=== PATIENT | male | born 1965 | race African-American/Black ===

== ENCOUNTER 2016-06-13 08:30 | Inpatient (IN) | payer OTHER ==
[2016-06-13 10:19] VITALS: BMI 26.7
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
[2016-06-13] MEDS ORDERED: chlordiazePOXIDE HCL 25 MG CAPSULE PO PRN (11:28)
[2016-06-13] MEDS ORDERED: IBUPROFEN 400 MG TABLET (FP) PO PRN (11:28)
[2016-06-13] MEDS ORDERED: MAGNESIUM CITRATE 300 ML BOTTLE PO PRN (11:28)
[2016-06-13] MEDS ORDERED: hydrOXYzine PAMOATE 25 MG CAPSULE (FP) PO PRN (11:28)
[2016-06-13] MEDS ORDERED: MAG HYDROX/AL HYDROX/SIMETH 30 ML UNIT-DOSE CUP PO PRN (11:28)
[2016-06-13] MEDS ORDERED: guaiFENesin/D-METHORPHAN HB 10 ML UNIT-DOSE CUPS PO PRN (11:28)
[2016-06-13] MEDS ORDERED: NICOTINE POLACRILEX 2 MG GUM BUC PRN (11:28)
[2016-06-13] MEDS ORDERED: P-EPHED 60MG/TRIPROLIDI 2.5MG TABLET PO PRN (11:28)
[2016-06-13] MEDS ORDERED: MENTHOL/PHENOL 1 EACH UD MM PRN (11:28)
[2016-06-13] MEDS ORDERED: LOPERAMIDE HCL 2 MG CAPSULE PO PRN (11:28)
[2016-06-13] MEDS ORDERED: MAGNESIUM HYDROX 2400MG/30ML ORAL SUSPENSION 30 ML CUP PO PRN (11:28)
[2016-06-13] MEDS ORDERED: ACETAMINOPHEN 325 MG TABLET (FP) PO PRN (11:28)
--- NOTE | 2016-06-13 11:35 | PN ---
BHS Progress Note Note: PATIENT ALSO HAS DVT LEFT LEG ON PRADAXA 150 MGS PO BID
[2016-06-13] MEDS ORDERED: chlordiazePOXIDE HCL 25 MG CAPSULE PO ONE (11:42)
[2016-06-13] MEDS: NICOTINE 21 MG/24 HOURS TOPICAL PATCH TD SCH (13:14)
--- NOTE | 2016-06-13 13:49 | CONSULT ---
[facility] Psychiatric Consult - Data Date of interview: 06/13/16 Admission source: [facility] Identifying data: This is 50 years old male with history of Bipolar disorder intoxicated with: Alcohol, Crack, Nicotine and Cannabis Substance Abuse History: - Smoking Cessation. Smoking history: Current every day smoker. Have you smoked in the past 12 months: Yes. Aproximately how many cigarettes per day: 10. Cigars Per Day: 0. Hx Chewing Tobacco Use: No. Initiated information on smoking cessation: Yes. 'Breaking Loose' booklet given : 06/13/16. - Substance & Tx. History. Hx Alcohol Use: Yes. Substance Use Type: Cocaine. Hx Substance Use Treatment: Yes (LAST [facility] ). - Substances Abused. Alcohol. Route: Oral. Frequency: Daily. Amount used: 2 qts beer/ 1 pint vodka. Age of first use: 14. Date of Last Use: 06/13/16. * * Crack. Route: Smoking. Frequency: Daily. Amount used: $30. Age of first use: 19. Date of Last Use: 06/11/16 Medical History: AIDS, DVT Hisotury, Avascula necrosis both Hips, HTN, Weight loss, Seizure history, Syncope history Psychiatric History: Patient reports to carry Bipolar disorder, reports no history of psychiatric hospitalizarions, reports taking prior to admission: Lexapro 20mg poqd Physical/Sexual Abuse/Trauma History: Denies Additional Comment: Lexapro 20mg poqd Mental Status Exam - Mental Status Exam Alert and Oriented to: Person Cognitive Function: Fair Patient Appearance: Unkempt Mood: Sad Affect: Mood Congruent Patient Behavior: Cooperative Speech Pattern: Appropriate Voice Loudness: Normal Thought Process: Circumstantial Thought Disorder: Being Controlled Hallucinations: Denies Suicidal Ideation: Denies Homicidal Ideation: Denies Insight/Judgement: Fair Sleep: Difficulty falling asleep Appetite: Fair Muscle strength/Tone: Normal Gait/Station: Normal Additional Comments: Lexapro 20mg poqd Psychiatric Findings - Problem List ([place] 1, 2,3) (1) Alcohol dependence with uncomplicated withdrawal Current Visit: Yes Status: Acute (2) Alcohol dependence Current Visit: No Status: Acute (3) Bipolar disorder Current Visit: No Status: Acute (4) Cannabis dependence Current Visit: No Status: Acute (5) Cocaine dependence Current Visit: No Status: Acute - Initial Treatment Plan Initial Treatment Plan: Lexapro 20mg poqd
[2016-06-13] MEDS: ESCITALOPRAM OXALATE 20 MG TABLET (FP) PO SCH (14:23)
[2016-06-13] MEDS: chlordiazePOXIDE HCL 25 MG CAPSULE PO SCH ×2 (17:25→22:33)
[2016-06-13] MEDS: DABIGATRAN ETEXILATE MESYLATE 150 MG CAPSULE PO SCH (22:33)
[2016-06-13] MEDS: diphenhydrAMINE HCL 50 MG CAPSULE PO PRN (22:33)
[2016-06-13] MEDS: cloNIDine HCL 0.1 MG TABLET PO PRN (22:33)
[2016-06-13] MEDS: THIAMINE HCL 100 MG TABLET (FP) PO SCH (22:33)
[2016-06-13 23:17] LABS: URINE APPEARANCE CLEAR; URINE BILIRUBIN NEGATIVE (NEGATIVE); URINE COLOR YELLOW; URINE GLUCOSE (UA) NEGATIVE (NEGATIVE); URINE KETONE NEGATIVE (NEGATIVE); URINE LEUK ESTERASE NEGATIVE (NEGATIVE); URINE NITRITE NEGATIVE (NEGATIVE); URINE UROBILINOGEN NEGATIVE E.U./dl (0.2-1.0)
[2016-06-13 23:20] LABS: URINE BLOOD 1+ (NEGATIVE); URINE PROTEIN 3+ (NEGATIVE)
[2016-06-13 23:26] LABS: URINE HYALINE CAST 8 /lpf; URINE MUCUS RARE; URINE RBC 11 /hpf (0-3); URINE WBC 2 /hpf (3-5)
[2016-06-14] MEDS: chlordiazePOXIDE HCL 25 MG CAPSULE PO SCH ×4 (05:59→22:24)
[2016-06-14] MEDS: ESCITALOPRAM OXALATE 20 MG TABLET (FP) PO SCH (10:20)
[2016-06-14] MEDS: DABIGATRAN ETEXILATE MESYLATE 150 MG CAPSULE PO SCH ×2 (10:20→22:24)
[2016-06-14] MEDS: PRENATAL VITAMINS W/ FOLIC ACID TABLET (FP) PO SCH (10:20)
[2016-06-14] MEDS: NICOTINE 21 MG/24 HOURS TOPICAL PATCH TD SCH (10:22)
[2016-06-14 10:56] LABS: MCH 26.5 pg (25.7-33.7); MCHC 31.8 g/dl (32.0-35.9); MEAN CELL VOLUME 83.3 fl (80-96); MEAN PLT VOLUME 9.5 fl (7.5-11.1); PLATELET COUNT 193 K/MM3 (134-434); RDW 15.3 % (11.9-15.9); WHITE BLOOD COUNT 4.2 K/mm3 (4.0-10.0)
[2016-06-14 11:26] LABS: ALBUMIN 3.5 g/dl (3.4-5.0); BILIRUBIN,TOTAL 0.3 mg/dL (0.2-1.0); CALCIUM 9.5 mg/dL (8.5-10.1); CREATININE 1.7 mg/dL (0.7-1.3); TOT PROT 7.4 g/dl (6.4-8.2)
--- NOTE | 2016-06-14 15:47 | PN ---
[facility] CIWA - CIWA Score Nausea/Vomitin-No Nausea/No Vomiting Muscle Tremors: 3 Anxiety: 4-Mod. Anxious/Guarded Agitation: 3 Paroxysmal Sweats: 3 Orientation: 0-Oriented Tacttile Disturbances: 0-None Auditory Disturbances: 0-None Visual Disturbances: 0-None Headache: 0-None Present CIWA-Ar Total Score: 13 BHS Progress Note (SOAP) Subjective: ANXIETY,TREMORS,SWEATING,INTERRUPTED SLEEP,RESTLESS. Objective: 06/14/16 15:46 Vital Signs - 8 hr 06/14/16 10:24 Temperature 96.3 F L Pulse Rate 92 H Respiratory 20 Rate Blood Pressure 115/76 Laboratory Tests 06/13/16 06/14/16 06/14/16 14:00 06:00 06:00 WBC 4.2 RBC 5.14 Hgb 13.6 Hct 42.8 MCV 83.3 MCHC 31.8 L RDW 15.3 D Plt Count 193 MPV 9.5 D Sodium 141 Potassium 4.1 Chloride 104 Carbon Dioxide 29 Anion Gap 8 BUN 18 Creatinine 1.7 H D Creat Clearance w eGFR 43.05 Random Glucose 100 Calcium 9.5 Total Bilirubin 0.3 AST 13 L ALT 15 D Alkaline Phosphatase 135 H D Total Protein 7.4 Albumin 3.5 D Urine Color Yellow Urine Appearance Clear Urine pH 5.0 Ur Specific [place] 1.016 Urine Protein 3+ H Urine Glucose (UA) Negative Urine Ketones Negative Urine Blood 1+ H Urine Nitrite Negative Urine Bilirubin Negative Urine Urobilinogen Negative Ur Leukocyte Esterase Negative Urine RBC 11 Urine WBC 2 Ur Epithelial Cells Rare Hyaline Casts 8 Urine Mucus Rare RPR Titer 06/14/16 06:00 WBC RBC Hgb Hct MCV MCHC RDW Plt Count MPV Sodium Potassium Chloride Carbon Dioxide Anion Gap BUN Creatinine Creat Clearance w eGFR Random Glucose Calcium Total Bilirubin AST ALT Alkaline Phosphatase Total Protein Albumin Urine Color Urine Appearance Urine pH Ur Specific [place] Urine Protein Urine Glucose (UA) Urine Ketones Urine Blood Urine Nitrite Urine Bilirubin Urine Urobilinogen Ur Leukocyte Esterase Urine RBC Urine WBC Ur Epithelial Cells Hyaline Casts Urine Mucus RPR Titer Nonreactive LABS NOTED Assessment: 06/14/16 15:46 WITHDRAWAL SX. Plan: CONTINUE DETOX
[2016-06-14] MEDS: diphenhydrAMINE HCL 50 MG CAPSULE PO PRN (22:24)
[2016-06-14] MEDS: THIAMINE HCL 100 MG TABLET (FP) PO SCH (22:24)
[2016-06-15] MEDS: chlordiazePOXIDE HCL 25 MG CAPSULE PO SCH ×2 (06:13→12:35)
[2016-06-15] MEDS: ESCITALOPRAM OXALATE 20 MG TABLET (FP) PO SCH (12:34)
[2016-06-15] MEDS: NICOTINE 21 MG/24 HOURS TOPICAL PATCH TD SCH (12:35)
[2016-06-15] MEDS: PRENATAL VITAMINS W/ FOLIC ACID TABLET (FP) PO SCH (12:35)
[2016-06-15] MEDS: DABIGATRAN ETEXILATE MESYLATE 150 MG CAPSULE PO SCH ×2 (12:35→22:43)
--- NOTE | 2016-06-15 13:04 | PN ---
[facility] CIWA - CIWA Score Nausea/Vomitin-No Nausea/No Vomiting Muscle Tremors: 2 Anxiety: 2 Agitation: 3 Paroxysmal Sweats: 3 Orientation: 0-Oriented Tacttile Disturbances: 0-None Auditory Disturbances: 0-None Visual Disturbances: 0-None Headache: 0-None Present CIWA-Ar Total Score: 10 S Progress Note (SOAP) Subjective: SWEATING,ANXIETY,TREMORS,INTERRUPTED SLEEP,RESTLESS. Objective: 06/15/16 13:03 Vital Signs - 8 hr 06/15/16 06/15/16 06:09 11:06 Temperature 97.2 F L 98.0 F Pulse Rate 103 H 100 H Respiratory 18 18 Rate Blood Pressure 138/97 146/99 Laboratory Last Values WBC 4.2 K/mm3 (4.0-10.0) 06/14/16 06:00 RBC 5.14 M/mm3 (4.00-5.60) 06/14/16 06:00 Hgb 13.6 GM/dL (11.7-16.9) 06/14/16 06:00 Hct 42.8 % (35.4-49) 06/14/16 06:00 MCV 83.3 fl (80-96) 06/14/16 06:00 MCHC 31.8 g/dl (32.0-35.9) L 06/14/16 06:00 RDW 15.3 % (11.9-15.9) D 06/14/16 06:00 Plt Count 193 K/MM3 (134-434) 06/14/16 06:00 MPV 9.5 fl (7.5-11.1) D 06/14/16 06:00 Sodium 141 mmol/L (136-145) 06/14/16 06:00 Potassium 4.1 mmol/L (3.5-5.1) 06/14/16 06:00 Chloride 104 mmol/L (98-107) 06/14/16 06:00 Carbon Dioxide 29 mmol/L (21-32) 06/14/16 06:00 Anion Gap 8 (8-16) 06/14/16 06:00 BUN 18 mg/dL (7-18) 06/14/16 06:00 Creatinine 1.7 mg/dL (0.7-1.3) H D 06/14/16 06:00 Creat Clearance w eGFR 43.05 (>60) 06/14/16 06:00 Random Glucose 100 mg/dL (74-106) 06/14/16 06:00 Calcium 9.5 mg/dL (8.5-10.1) 06/14/16 06:00 Total Bilirubin 0.3 mg/dL (0.2-1.0) 06/14/16 06:00 AST 13 U/L (15-37) L 06/14/16 06:00 ALT 15 U/L (12-78) D 06/14/16 06:00 Alkaline Phosphatase 135 U/L (45-117) H D 06/14/16 06:00 Total Protein 7.4 g/dl (6.4-8.2) 06/14/16 06:00 Albumin 3.5 g/dl (3.4-5.0) D 06/14/16 06:00 Urine Color Yellow 06/13/16 14:00 Urine Appearance Clear 06/13/16 14:00 Urine pH 5.0 (5.0-8.0) 06/13/16 14:00 Ur Specific [place] 1.016 (1.001-1.035) 06/13/16 14:00 Urine Protein 3+ (NEGATIVE) H 06/13/16 14:00 Urine Glucose (UA) Negative (NEGATIVE) 06/13/16 14:00 Urine Ketones Negative (NEGATIVE) 06/13/16 14:00 Urine Blood 1+ (NEGATIVE) H 06/13/16 14:00 Urine Nitrite Negative (NEGATIVE) 06/13/16 14:00 Urine Bilirubin Negative (NEGATIVE) 06/13/16 14:00 Urine Urobilinogen Negative E.U./dl (0.2-1.0) 06/13/16 14:00 Ur Leukocyte Esterase Negative (NEGATIVE) 06/13/16 14:00 Urine RBC 11 /hpf (0-3) 06/13/16 14:00 Urine WBC 2 /hpf (3-5) 06/13/16 14:00 Ur Epithelial Cells Rare /hpf (FEW) 06/13/16 14:00 Hyaline Casts 8 /lpf 06/13/16 14:00 Urine Mucus Rare 06/13/16 14:00 RPR Titer Nonreactive (NONREACTIVE) 06/14/16 06:00 LABS NOTED Assessment: 06/15/16 13:03 WITHDRAWAL SX. Plan: CONTINUE DETOX
[2016-06-15] MEDS: chlordiazePOXIDE 5 MG CAPSULE PO SCH ×2 (18:13→22:43)
[2016-06-15] MEDS: THIAMINE HCL 100 MG TABLET (FP) PO SCH (22:43)
[2016-06-15] MEDS: diphenhydrAMINE HCL 50 MG CAPSULE PO PRN (22:44)
[2016-06-15 22:52] LABS: URINE APPEARANCE CLEAR; URINE BILIRUBIN NEGATIVE (NEGATIVE); URINE BLOOD NEGATIVE (NEGATIVE); URINE COLOR LTYELLOW; URINE GLUCOSE (UA) NEGATIVE (NEGATIVE); URINE KETONE NEGATIVE (NEGATIVE); URINE LEUK ESTERASE NEGATIVE (NEGATIVE); URINE NITRITE NEGATIVE (NEGATIVE); URINE PROTEIN 2+ (NEGATIVE); URINE UROBILINOGEN NEGATIVE E.U./dl (0.2-1.0)
[2016-06-15 22:55] LABS: URINE HYALINE CAST 1 /lpf; URINE MUCUS RARE; URINE RBC 2 /hpf (0-3); URINE WBC 1 /hpf (3-5)
[2016-06-16] MEDS: chlordiazePOXIDE 5 MG CAPSULE PO SCH ×2 (06:33→11:08)
[2016-06-16] MEDS: NICOTINE 21 MG/24 HOURS TOPICAL PATCH TD SCH (11:08)
[2016-06-16] MEDS: ESCITALOPRAM OXALATE 20 MG TABLET (FP) PO SCH (11:08)
[2016-06-16] MEDS: DABIGATRAN ETEXILATE MESYLATE 150 MG CAPSULE PO SCH ×2 (11:09→23:01)
[2016-06-16] MEDS: PRENATAL VITAMINS W/ FOLIC ACID TABLET (FP) PO SCH (11:09)
--- NOTE | 2016-06-16 14:11 | PN ---
BHS Progress Note (SOAP) Subjective: Sweating, Body Aches. Objective: 06/16/16 14:09 Vital Signs Temperature 96.6 F L 06/16/16 10:00 Pulse Rate 108 H 06/16/16 10:00 Respiratory Rate 18 06/16/16 10:00 Blood Pressure 148/105 06/16/16 10:00 O2 Sat by Pulse Oximetry (%) Laboratory Last Values WBC 4.2 K/mm3 (4.0-10.0) 06/14/16 06:00 RBC 5.14 M/mm3 (4.00-5.60) 06/14/16 06:00 Hgb 13.6 GM/dL (11.7-16.9) 06/14/16 06:00 Hct 42.8 % (35.4-49) 06/14/16 06:00 MCV 83.3 fl (80-96) 06/14/16 06:00 MCHC 31.8 g/dl (32.0-35.9) L 06/14/16 06:00 RDW 15.3 % (11.9-15.9) D 06/14/16 06:00 Plt Count 193 K/MM3 (134-434) 06/14/16 06:00 MPV 9.5 fl (7.5-11.1) D 06/14/16 06:00 Sodium 141 mmol/L (136-145) 06/14/16 06:00 Potassium 4.1 mmol/L (3.5-5.1) 06/14/16 06:00 Chloride 104 mmol/L (98-107) 06/14/16 06:00 Carbon Dioxide 29 mmol/L (21-32) 06/14/16 06:00 Anion Gap 8 (8-16) 06/14/16 06:00 BUN 18 mg/dL (7-18) 06/14/16 06:00 Creatinine 1.7 mg/dL (0.7-1.3) H D 06/14/16 06:00 Creat Clearance w eGFR 43.05 (>60) 06/14/16 06:00 Random Glucose 100 mg/dL (74-106) 06/14/16 06:00 Calcium 9.5 mg/dL (8.5-10.1) 06/14/16 06:00 Total Bilirubin 0.3 mg/dL (0.2-1.0) 06/14/16 06:00 AST 13 U/L (15-37) L 06/14/16 06:00 ALT 15 U/L (12-78) D 06/14/16 06:00 Alkaline Phosphatase 135 U/L (45-117) H D 06/14/16 06:00 Total Protein 7.4 g/dl (6.4-8.2) 06/14/16 06:00 Albumin 3.5 g/dl (3.4-5.0) D 06/14/16 06:00 Urine Color Ltyellow 06/15/16 16:00 Urine Appearance Clear 06/15/16 16:00 Urine pH 5.0 (5.0-8.0) 06/15/16 16:00 Ur Specific [place] 1.014 (1.001-1.035) 06/15/16 16:00 Urine Protein 2+ (NEGATIVE) H 06/15/16 16:00 Urine Glucose (UA) Negative (NEGATIVE) 06/15/16 16:00 Urine Ketones Negative (NEGATIVE) 06/15/16 16:00 Urine Blood Negative (NEGATIVE) 06/15/16 16:00 Urine Nitrite Negative (NEGATIVE) 06/15/16 16:00 Urine Bilirubin Negative (NEGATIVE) 06/15/16 16:00 Urine Urobilinogen Negative E.U./dl (0.2-1.0) 06/15/16 16:00 Ur Leukocyte Esterase Negative (NEGATIVE) 06/15/16 16:00 Urine RBC 2 /hpf (0-3) 06/15/16 16:00 Urine WBC 1 /hpf (3-5) 06/15/16 16:00 Ur Epithelial Cells Rare /hpf (FEW) 06/15/16 16:00 Hyaline Casts 1 /lpf 06/15/16 16:00 Urine Mucus Rare 06/15/16 16:00 RPR Titer Nonreactive (NONREACTIVE) 06/14/16 06:00 LABS NOTED. Assessment: 06/16/16 14:10 WITHDRAWAL SYMPTOMS. Plan: CONTINUE DETOX. CONTINUE TO MONITOR BP.
[2016-06-16] MEDS: chlordiazePOXIDE HCL 10 MG CAPSULE PO SCH ×2 (17:37→23:00)
[2016-06-16] MEDS: THIAMINE HCL 100 MG TABLET (FP) PO SCH (23:00)
[2016-06-16] MEDS: cloNIDine HCL 0.1 MG TABLET PO PRN (23:00)
[2016-06-17] MEDS: chlordiazePOXIDE HCL 10 MG CAPSULE PO SCH ×2 (06:00→10:53)
[2016-06-17] MEDS: cloNIDine HCL 0.1 MG TABLET PO PRN (06:57)
[2016-06-17 10:30] VITALS: BP 126/93; PULSE 89; TEMP 97.6
[2016-06-17] MEDS: DABIGATRAN ETEXILATE MESYLATE 150 MG CAPSULE PO SCH (10:51)
[2016-06-17] MEDS: PRENATAL VITAMINS W/ FOLIC ACID TABLET (FP) PO SCH (10:51)
[2016-06-17] MEDS: ESCITALOPRAM OXALATE 20 MG TABLET (FP) PO SCH (10:51)
[2016-06-17] MEDS: NICOTINE 21 MG/24 HOURS TOPICAL PATCH TD SCH (10:53)
--- NOTE | 2016-06-17 10:59 | DS ---
[facility] Detox Discharge Summary Admission Date: 06/13/16 Discharge Date: 06/17/16 - History Present History: Alcohol Dependence, Cannabis Dependence, Cocaine Dependence Pertinent Past History: DVT LEFT LEG - Physical Exam Results Vital Signs: Vital Signs Temperature 97.6 F 06/17/16 10:29 Pulse Rate 89 06/17/16 10:29 Respiratory Rate 20 06/17/16 10:29 Blood Pressure 126/93 06/17/16 10:29 O2 Sat by Pulse Oximetry (%) Pertinent Admission Physical Exam Findings: WITHDRAWAL SX. Laboratory Last Values WBC 4.2 K/mm3 (4.0-10.0) 06/14/16 06:00 RBC 5.14 M/mm3 (4.00-5.60) 06/14/16 06:00 Hgb 13.6 GM/dL (11.7-16.9) 06/14/16 06:00 Hct 42.8 % (35.4-49) 06/14/16 06:00 MCV 83.3 fl (80-96) 06/14/16 06:00 MCHC 31.8 g/dl (32.0-35.9) L 06/14/16 06:00 RDW 15.3 % (11.9-15.9) D 06/14/16 06:00 Plt Count 193 K/MM3 (134-434) 06/14/16 06:00 MPV 9.5 fl (7.5-11.1) D 06/14/16 06:00 Sodium 141 mmol/L (136-145) 06/14/16 06:00 Potassium 4.1 mmol/L (3.5-5.1) 06/14/16 06:00 Chloride 104 mmol/L (98-107) 06/14/16 06:00 Carbon Dioxide 29 mmol/L (21-32) 06/14/16 06:00 Anion Gap 8 (8-16) 06/14/16 06:00 BUN 18 mg/dL (7-18) 06/14/16 06:00 Creatinine 1.7 mg/dL (0.7-1.3) H D 06/14/16 06:00 Creat Clearance w eGFR 43.05 (>60) 06/14/16 06:00 Random Glucose 100 mg/dL (74-106) 06/14/16 06:00 Calcium 9.5 mg/dL (8.5-10.1) 06/14/16 06:00 Total Bilirubin 0.3 mg/dL (0.2-1.0) 06/14/16 06:00 AST 13 U/L (15-37) L 06/14/16 06:00 ALT 15 U/L (12-78) D 06/14/16 06:00 Alkaline Phosphatase 135 U/L (45-117) H D 06/14/16 06:00 Total Protein 7.4 g/dl (6.4-8.2) 06/14/16 06:00 Albumin 3.5 g/dl (3.4-5.0) D 06/14/16 06:00 Urine Color Ltyellow 06/15/16 16:00 Urine Appearance Clear 06/15/16 16:00 Urine pH 5.0 (5.0-8.0) 06/15/16 16:00 Ur Specific [place] 1.014 (1.001-1.035) 06/15/16 16:00 Urine Protein 2+ (NEGATIVE) H 06/15/16 16:00 Urine Glucose (UA) Negative (NEGATIVE) 06/15/16 16:00 Urine Ketones Negative (NEGATIVE) 06/15/16 16:00 Urine Blood Negative (NEGATIVE) 06/15/16 16:00 Urine Nitrite Negative (NEGATIVE) 06/15/16 16:00 Urine Bilirubin Negative (NEGATIVE) 06/15/16 16:00 Urine Urobilinogen Negative E.U./dl (0.2-1.0) 06/15/16 16:00 Ur Leukocyte Esterase Negative (NEGATIVE) 06/15/16 16:00 Urine RBC 2 /hpf (0-3) 06/15/16 16:00 Urine WBC 1 /hpf (3-5) 06/15/16 16:00 Ur Epithelial Cells Rare /hpf (FEW) 06/15/16 16:00 Hyaline Casts 1 /lpf 06/15/16 16:00 Urine Mucus Rare 06/15/16 16:00 RPR Titer Nonreactive (NONREACTIVE) 06/14/16 06:00 LABS NOTED - Treatment Hospital Course: Detox Protocol Followed, Detoxed Safely, Responded well, Discharged Condition Good, Rehab Referral Accepted - Medication Discharge Medications: Ambulatory Orders Dabigatran Etexilate Mesylate [Pradaxa -] 150 mg PO BID 06/13/16 Escitalopram Oxalate [Lexapro -] 20 mg PO DAILY #30 tablet 06/13/16 - Diagnosis (1) Alcohol dependence with uncomplicated withdrawal Current Visit: Yes Status: Acute (2) Left leg DVT Current Visit: Yes Status: Acute (3) Acquired immune deficiency syndrome (AIDS) Current Visit: Yes Status: Acute (4) Bipolar disorder Current Visit: Yes Status: Acute (5) Cannabis dependence Current Visit: Yes Status: Acute (6) Cocaine dependence Current Visit: Yes Status: Acute Qualifiers: Substance use status: uncomplicated Qualified Code(s): F14.20 - Cocaine dependence, uncomplicated - AMA Did Patient Leave Against Medical Advice: No
== END 2016-06-17 11:09 | disposition other institution (70) | DRG 775 ==
LOC: YASAS 08:30 → Y3N 11:15
PROVIDERS: ADMIT Internal Medicine; ATTEND Internal Medicine
PROC: HZ2ZZZZ Detoxification Services for Substance Abuse Treatment (ICD-10-PCS; principal; 2016-06-13)
DX: F10.230 Alcohol dependence with withdrawal, uncomplicated (principal); F12.20 Cannabis dependence, uncomplicated; F17.210 Nicotine dependence, cigarettes, uncomplicated; F31.9 Bipolar disorder, unspecified; B20 Human immunodeficiency virus [HIV] disease; I10 Essential (primary) hypertension; I82.402 Acute embolism and thrombosis of unspecified deep veins of left lower extremity; Z79.01 Long term (current) use of anticoagulants; M87.9 Osteonecrosis, unspecified; Z86.69 Personal history of other diseases of the nervous system and sense organs; Z86.79 Personal history of other diseases of the circulatory system; Z87.898 Personal history of other specified conditions
CPT/HCPCS: 36415; 80053; 81003; 81015; 85027; 86593; 93005; 93010

== ENCOUNTER 2016-06-17 11:22 | Inpatient (IN) | payer OTHER ==
[2016-06-17] MEDS ORDERED: P-EPHED 60MG/TRIPROLIDI 2.5MG TABLET PO PRN (13:20)
[2016-06-17] MEDS ORDERED: LOPERAMIDE HCL 2 MG CAPSULE PO PRN (13:20)
[2016-06-17] MEDS ORDERED: MAGNESIUM HYDROX 2400MG/30ML ORAL SUSPENSION 30 ML CUP PO PRN (13:20)
[2016-06-17] MEDS ORDERED: ACETAMINOPHEN 325 MG TABLET (FP) PO PRN (13:20)
[2016-06-17] MEDS ORDERED: IBUPROFEN 400 MG TABLET (FP) PO PRN (13:20)
[2016-06-17] MEDS ORDERED: guaiFENesin/D-METHORPHAN HB 10 ML UNIT-DOSE CUPS PO PRN (13:20)
[2016-06-17] MEDS ORDERED: MAGNESIUM CITRATE 300 ML BOTTLE PO PRN (13:20)
[2016-06-17] MEDS ORDERED: MAG HYDROX/AL HYDROX/SIMETH 30 ML UNIT-DOSE CUP PO PRN (13:20)
[2016-06-17] MEDS ORDERED: hydrOXYzine PAMOATE 50 MG CAPSULE (FP) PO PRN (13:20)
--- NOTE | 2016-06-17 13:24 | HP ---
[facility] Re[facility] Assess/Revision - Admission History Ad[facility] to Rehab [facility] Date of Admission to Rehab: 06/17/16 - Findings Detox History & Physical reviewed: Yes Concur with findings: Yes Comments/Additional Findings: for rehab as protocol
[2016-06-17] MEDS: THIAMINE HCL 100 MG TABLET (FP) PO SCH (22:11)
[2016-06-17] MEDS: DABIGATRAN ETEXILATE MESYLATE 150 MG CAPSULE PO SCH (22:11)
[2016-06-17] MEDS: diphenhydrAMINE HCL 50 MG CAPSULE PO PRN (22:12)
[2016-06-18] MEDS: PRENATAL VITAMINS W/ FOLIC ACID TABLET (FP) PO SCH (09:55)
[2016-06-18] MEDS: DABIGATRAN ETEXILATE MESYLATE 150 MG CAPSULE PO SCH ×2 (09:56→22:05)
[2016-06-18] MEDS: MENTHOL/PHENOL 1 EACH UD MM PRN (09:57)
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
[2016-06-18] MEDS ORDERED: HYDROCORTISONE 1% TOPICAL CREAM 30 GM TUBE TP PRN (12:43)
--- NOTE | 2016-06-18 12:49 | PN ---
BHS Progress Note (SOAP) Subjective: sore throat x 1 day Objective: 06/18/16 12:47 Vital Signs Temperature 97.1 F L 06/18/16 06:58 Pulse Rate 81 06/18/16 06:58 Respiratory Rate 20 06/18/16 06:58 Blood Pressure 121/93 06/18/16 06:58 O2 Sat by Pulse Oximetry (%) pt aox3 oral + erythema , swelling lungs clear no sob Assessment: 06/18/16 12:48 pharyngitis Plan: fluids augmentin 875 mg bid motrin 400mg tid
[2016-06-18] MEDS ORDERED: IBUPROFEN 400 MG TABLET (FP) PO PRN (15:37)
[2016-06-18] MEDS: AMOX TR/POT CLAV 875MG/125MG TABLETS (FP) PO SCH (18:06)
[2016-06-18] MEDS: THIAMINE HCL 100 MG TABLET (FP) PO SCH (22:05)
[2016-06-18] MEDS: diphenhydrAMINE HCL 50 MG CAPSULE PO PRN (22:05)
[2016-06-19] MEDS: AMOX TR/POT CLAV 875MG/125MG TABLETS (FP) PO SCH ×2 (07:43→17:27)
[2016-06-19] MEDS: ESCITALOPRAM OXALATE 20 MG TABLET (FP) PO SCH (10:09)
[2016-06-19] MEDS: PRENATAL VITAMINS W/ FOLIC ACID TABLET (FP) PO SCH (10:09)
[2016-06-19] MEDS: DABIGATRAN ETEXILATE MESYLATE 150 MG CAPSULE PO SCH ×2 (10:09→21:42)
[2016-06-19] MEDS: diphenhydrAMINE HCL 50 MG CAPSULE PO PRN (21:42)
[2016-06-19] MEDS: THIAMINE HCL 100 MG TABLET (FP) PO SCH (21:42)
[2016-06-20] MEDS: AMOX TR/POT CLAV 875MG/125MG TABLETS (FP) PO SCH ×2 (07:03→18:03)
[2016-06-20] MEDS: ESCITALOPRAM OXALATE 20 MG TABLET (FP) PO SCH (10:50)
[2016-06-20] MEDS: PRENATAL VITAMINS W/ FOLIC ACID TABLET (FP) PO SCH (10:50)
[2016-06-20] MEDS: DABIGATRAN ETEXILATE MESYLATE 150 MG CAPSULE PO SCH ×2 (10:50→22:06)
[2016-06-20] MEDS: THIAMINE HCL 100 MG TABLET (FP) PO SCH (22:06)
[2016-06-21] MEDS: AMOX TR/POT CLAV 875MG/125MG TABLETS (FP) PO SCH ×2 (07:00→17:54)
[2016-06-21] MEDS: PRENATAL VITAMINS W/ FOLIC ACID TABLET (FP) PO SCH (09:59)
[2016-06-21] MEDS: DABIGATRAN ETEXILATE MESYLATE 150 MG CAPSULE PO SCH ×2 (09:59→22:28)
[2016-06-21] MEDS: ESCITALOPRAM OXALATE 20 MG TABLET (FP) PO SCH (09:59)
--- NOTE | 2016-06-21 11:53 | PN ---
BHS Progress Note Note: pt has ho htn note CRI (cr 1.7) given repeated bp elevation and hx will restart meds, lisinopril 10mg with titration and consider pre dc labs.
[2016-06-21] MEDS ORDERED: LISINOPRIL 10 MG TABLET (FP) PO SCH (12:00)
[2016-06-21] MEDS ORDERED: HYDROCHLOROTHIAZIDE 25 MG TABLET (FP) PO SCH (12:00)
[2016-06-21] MEDS: THIAMINE HCL 100 MG TABLET (FP) PO SCH (22:28)
[2016-06-21] MEDS ORDERED: LISINOPRIL 10 MG TABLET (FP) PO ONE ×2 (23:08)
[2016-06-22] MEDS: AMOX TR/POT CLAV 875MG/125MG TABLETS (FP) PO SCH ×2 (07:00→17:33)
[2016-06-22] MEDS: PRENATAL VITAMINS W/ FOLIC ACID TABLET (FP) PO SCH (10:01)
[2016-06-22] MEDS: ESCITALOPRAM OXALATE 20 MG TABLET (FP) PO SCH (10:01)
[2016-06-22] MEDS: LISINOPRIL 10 MG TABLET (FP) PO SCH (10:01)
[2016-06-22] MEDS: DABIGATRAN ETEXILATE MESYLATE 150 MG CAPSULE PO SCH ×2 (10:01→21:34)
[2016-06-22] MEDS: THIAMINE HCL 100 MG TABLET (FP) PO SCH (21:34)
[2016-06-22] MEDS: diphenhydrAMINE HCL 50 MG CAPSULE PO PRN (21:37)
[2016-06-23] MEDS: AMOX TR/POT CLAV 875MG/125MG TABLETS (FP) PO SCH ×2 (07:24→17:33)
[2016-06-23] MEDS: LISINOPRIL 10 MG TABLET (FP) PO SCH (10:18)
[2016-06-23] MEDS: ESCITALOPRAM OXALATE 20 MG TABLET (FP) PO SCH (10:18)
[2016-06-23] MEDS: DABIGATRAN ETEXILATE MESYLATE 150 MG CAPSULE PO SCH ×2 (10:18→23:40)
[2016-06-23] MEDS: PRENATAL VITAMINS W/ FOLIC ACID TABLET (FP) PO SCH (10:18)
[2016-06-23] MEDS: THIAMINE HCL 100 MG TABLET (FP) PO SCH (23:40)
[2016-06-24] MEDS: AMOX TR/POT CLAV 875MG/125MG TABLETS (FP) PO SCH ×2 (07:00→17:03)
[2016-06-24] MEDS: DABIGATRAN ETEXILATE MESYLATE 150 MG CAPSULE PO SCH ×2 (09:58→21:22)
[2016-06-24] MEDS: LISINOPRIL 10 MG TABLET (FP) PO SCH (09:58)
[2016-06-24] MEDS: ESCITALOPRAM OXALATE 20 MG TABLET (FP) PO SCH (09:58)
[2016-06-24] MEDS: PRENATAL VITAMINS W/ FOLIC ACID TABLET (FP) PO SCH (09:59)
[2016-06-24] MEDS: THIAMINE HCL 100 MG TABLET (FP) PO SCH (21:22)
[2016-06-25] MEDS: AMOX TR/POT CLAV 875MG/125MG TABLETS (FP) PO SCH ×2 (07:00→17:33)
[2016-06-25] MEDS: ESCITALOPRAM OXALATE 20 MG TABLET (FP) PO SCH (10:01)
[2016-06-25] MEDS: LISINOPRIL 10 MG TABLET (FP) PO SCH (10:01)
[2016-06-25] MEDS: CYANOCOBALAMIN 1,000 MCG TABLET (FP) PO SCH (10:01)
[2016-06-25] MEDS: PRENATAL VITAMINS W/ FOLIC ACID TABLET (FP) PO SCH (10:01)
[2016-06-25] MEDS: DABIGATRAN ETEXILATE MESYLATE 150 MG CAPSULE PO SCH ×2 (10:01→21:23)
[2016-06-25] MEDS: amLODIPine BESYLATE 5 MG TABLET (FP) PO SCH (10:01)
[2016-06-25] MEDS: THIAMINE HCL 100 MG TABLET (FP) PO SCH (21:23)
[2016-06-25] MEDS: diphenhydrAMINE HCL 50 MG CAPSULE PO PRN (21:23)
[2016-06-26] MEDS: ESCITALOPRAM OXALATE 20 MG TABLET (FP) PO SCH (10:13)
[2016-06-26] MEDS: LISINOPRIL 10 MG TABLET (FP) PO SCH (10:13)
[2016-06-26] MEDS: CYANOCOBALAMIN 1,000 MCG TABLET (FP) PO SCH (10:13)
[2016-06-26] MEDS: DABIGATRAN ETEXILATE MESYLATE 150 MG CAPSULE PO SCH ×2 (10:13→21:34)
[2016-06-26] MEDS: amLODIPine BESYLATE 5 MG TABLET (FP) PO SCH (10:13)
[2016-06-26] MEDS: PRENATAL VITAMINS W/ FOLIC ACID TABLET (FP) PO SCH (10:13)
[2016-06-26] MEDS: MENTHOL/PHENOL 1 EACH UD MM PRN (10:14)
[2016-06-26] MEDS: THIAMINE HCL 100 MG TABLET (FP) PO SCH (21:34)
[2016-06-26] MEDS: diphenhydrAMINE HCL 50 MG CAPSULE PO PRN (21:34)
[2016-06-27 07:02] VITALS: TEMP 98.1
[2016-06-27] MEDS: LISINOPRIL 10 MG TABLET (FP) PO SCH (10:10)
[2016-06-27] MEDS: amLODIPine BESYLATE 5 MG TABLET (FP) PO SCH (10:10)
[2016-06-27] MEDS: PRENATAL VITAMINS W/ FOLIC ACID TABLET (FP) PO SCH (10:11)
[2016-06-27] MEDS: ESCITALOPRAM OXALATE 20 MG TABLET (FP) PO SCH (10:11)
[2016-06-27] MEDS: CYANOCOBALAMIN 1,000 MCG TABLET (FP) PO SCH (10:11)
[2016-06-27] MEDS: DABIGATRAN ETEXILATE MESYLATE 150 MG CAPSULE PO SCH ×2 (10:11→21:24)
[2016-06-27] MEDS: THIAMINE HCL 100 MG TABLET (FP) PO SCH (21:24)
[2016-06-27] MEDS: diphenhydrAMINE HCL 50 MG CAPSULE PO PRN (21:24)
[2016-06-28 06:50] VITALS: BP 145/97; PULSE 81
[2016-06-28] MEDS: PRENATAL VITAMINS W/ FOLIC ACID TABLET (FP) PO SCH (09:50)
[2016-06-28] MEDS: DABIGATRAN ETEXILATE MESYLATE 150 MG CAPSULE PO SCH (09:51)
[2016-06-28] MEDS: CYANOCOBALAMIN 1,000 MCG TABLET (FP) PO SCH (09:51)
[2016-06-28] MEDS: ESCITALOPRAM OXALATE 20 MG TABLET (FP) PO SCH (09:51)
[2016-06-28] MEDS: amLODIPine BESYLATE 5 MG TABLET (FP) PO SCH (09:51)
[2016-06-28] MEDS: LISINOPRIL 10 MG TABLET (FP) PO SCH (09:51)
--- NOTE | 2016-06-28 10:07 | PN ---
Psychiatric Progress Note Vital Signs: Vital Signs Period Temp Pulse Resp BP Sys/Vizcaino Pulse Ox Last 24 Hr 98.1 F 81 18-18 145/97 Date of Session: 06/28/16 Chief Complaint:: discharge visit HPI: Patient has address alcohol, cocaine, nicotine dependence comorbid Bipolar I disorder. ROS: WNL Current Medications: Active Medications Generic Name Dose Route Start Last Admin Trade Name Freq PRN Reason Stop Dose Admin Acetaminophen 650 mg 06/17/16 13:20 Tylenol - PO Q4H PRN FEVER OR PAIN Al Hydroxide/Mg Hydroxide 30 ml 06/17/16 13:20 Mylanta Oral Suspension - PO Q6H PRN DYSPEPSIA Amlodipine Besylate 5 mg 06/25/16 10:00 06/28/16 09:51 Norvasc - PO 5 mg DAILY CAL Administration Cyanocobalamin 1,000 mcg 06/25/16 10:00 06/28/16 09:51 Vitamin B12 - PO 1,000 mcg DAILY CAL Administration Dabigatran 150 mg 06/17/16 22:00 06/28/16 09:51 Pradaxa - PO 150 mg BID CAL Administration Diphenhydramine HCl 50 mg 06/17/16 13:20 06/27/16 21:24 Benadryl - PO 50 mg HSMR1 PRN Administration FOR ITCHING Escitalopram Oxalate 20 mg 06/19/16 10:00 06/28/16 09:51 Lexapro - PO 20 mg DAILY CAL Administration Eucalyptus/Menthol/Phenol/Sorbitol 1 each 06/17/16 13:20 06/26/16 10:14 Cepastat Lozenge - MM 1 each Q4H PRN Administration SORE THROAT Guaifenesin 10 ml 06/17/16 13:20 Robitussin Dm - PO Q6H PRN COUGH Hydroxyzine Pamoate 50 mg 06/17/16 13:20 Vistaril - PO Q4H PRN AGITATION Lisinopril 10 mg 06/22/16 10:00 06/28/16 09:51 Prinivil PO 10 mg DAILY CAL Administration Loperamide HCl 4 mg 06/17/16 13:20 Imodium - PO Q6H PRN DIARRHEA Magnesium Hydroxide 30 ml 06/17/16 13:20 Milk Of Magnesia - PO DAILY PRN CONSTIPATION Multivit/Folic Acid/Iron 1 tab 06/18/16 10:00 06/28/16 09:50 Vitamins (Sjr) - PO 1 tab DAILY CAL Administration Pseudoephedrine/Triprolidine 1 combo 06/17/16 13:20 Actifed - PO TID PRN NASAL CONGESTION Thiamine HCl 100 mg 06/17/16 22:00 06/27/16 21:24 Vitamin B1 - PO 100 mg HS CAL Administration Current Side Effect: No Lab tests ordered: No Lab tests reviewed: Yes Provider note:: Patient has completed today his treatment and met his goals, will continue to address his issues at [facility] outpatient services next level of care. Patient reports he has been feeling much better physically and mentally since he started his rehabilitation treatment, [facility] berkowitz, scripts provided. He verbalized understanding of the negative impact alcohol/ drugs on his major life areas. Patient was encouraged to continue maintain abstinence, he is stable for discharge. Total face to face time:: 35 Mental Status Exam - Mental Status Exam Alert and Oriented to: Time, Place, Person Cognitive Function: Good Patient Appearance: Well Groomed Mood: Hopeful Affect: Appropriate, Mood Congruent Patient Behavior: Appropriate, Cooperative Speech Pattern: Clear, Appropriate Voice Loudness: Normal Thought Process: Intact, Goal Oriented Hallucinations: Denies Suicidal Ideation: Denies Homicidal Ideation: Denies Insight/Judgement: Fair Sleep: Fair Appetite: Fair Muscle strength/Tone: Normal Gait/Station: Normal Psychiatric Treatment Plan - Problem List (4) Cocaine dependence Qualifiers: Substance use status: uncomplicated Qualified Code(s): F14.20 - Cocaine dependence, uncomplicated
== END 2016-06-28 10:35 | disposition home or self-care (01) | DRG 772 ==
LOC: YASAS 11:22 → Y5N 11:23
PROVIDERS: ADMIT Psychiatry & Neurology Psychiatry; ATTEND Psychiatry & Neurology Psychiatry
PROC: HZ42ZZZ Group Counseling for Substance Abuse Treatment, Cognitive-Behavioral (ICD-10-PCS; principal; 2016-06-16)
DX: F10.20 Alcohol dependence, uncomplicated (principal); F14.20 Cocaine dependence, uncomplicated; F17.210 Nicotine dependence, cigarettes, uncomplicated; F31.89 Other bipolar disorder; R03.0 Elevated blood-pressure reading, without diagnosis of hypertension; M87.9 Osteonecrosis, unspecified; J02.9 Acute pharyngitis, unspecified

== ENCOUNTER 2019-01-18 14:59 | Inpatient (IN) | payer OTHER ==
[2019-01-18 17:51] VITALS: BMI 18.9
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
[2019-01-18] MEDS ORDERED: MENTHOL/PHENOL 1 EACH UD MM PRN (19:44)
[2019-01-18] MEDS ORDERED: BISMUTH SUBSALICYLATE 524 MG/30 ML UD PO PRN (19:44)
[2019-01-18] MEDS ORDERED: chlordiazePOXIDE HCL 10 MG CAPSULE PO PRN (19:44)
[2019-01-18] MEDS ORDERED: MAGNESIUM HYDROX 2400MG/30ML ORAL SUSPENSION 30 ML CUP PO PRN (19:44)
[2019-01-18] MEDS ORDERED: MAG HYDROX/AL HYDROX/SIMETH 30 ML UNIT-DOSE CUP PO PRN (19:44)
[2019-01-18] MEDS ORDERED: ACETAMINOPHEN 325 MG TABLET (FP) PO PRN ×2 (19:44)
[2019-01-18] MEDS ORDERED: METHOCARBAMOL 500 MG TABLET PO PRN (19:44)
[2019-01-18] MEDS ORDERED: IBUPROFEN 400 MG TABLET (FP) PO PRN (19:44)
[2019-01-18] MEDS ORDERED: MAGNESIUM CITRATE 300 ML BOTTLE PO PRN (19:44)
[2019-01-18] MEDS ORDERED: cloNIDine HCL 0.1 MG TABLET PO ONE (19:50)
[2019-01-18] MEDS: chlordiazePOXIDE HCL 25 MG CAPSULE PO SCH (20:47)
[2019-01-18] MEDS: THIAMINE HCL 100 MG TABLET (FP) PO SCH (22:57)
[2019-01-19] MEDS: chlordiazePOXIDE HCL 25 MG CAPSULE PO SCH ×3 (07:07→21:28)
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
[2019-01-19] MEDS ORDERED: amLODIPine BESYLATE 5 MG TABLET (FP) PO SCH (10:00)
--- NOTE | 2019-01-19 10:59 | PN ---
S CIWA - CIWA Score Nausea/Vomitin Muscle Tremors: 2 Anxiety: 2 Agitation: 2 Paroxysmal Sweats: No Perspiration Orientation: 0-Oriented Tacttile Disturbances: 1-Very Mild Itch/Numbness Auditory Disturbances: 0-None Visual Disturbances: 0-None Headache: 2-Mild CIWA-Ar Total Score: 11 S Progress Note (SOAP) Subjective: alert,irritable,anxious,interrupted sleep Objective: 01/19/19 11:06 Vital Signs Temperature 97.7 F 01/19/19 09:21 Pulse Rate 77 01/19/19 09:21 Respiratory Rate 20 01/19/19 09:21 Blood Pressure 184/118 H 01/19/19 09:21 O2 Sat by Pulse Oximetry (%) 01/19/19 11:07 labs pending Assessment: 01/19/19 11:07 withdrawal symptom Plan: continue detox librium regimen
[2019-01-19 11:02] LABS: HEMATOCRIT 34.1 % (35.4-49); HEMOGLOBIN 10.9 GM/dL (11.7-16.9); MEAN CELL VOLUME 84.4 fl (80-96); PLATELET COUNT 252 K/MM3 (134-434); RBC 4.04 M/mm3 (4.00-5.60); RDW 16.3 % (11.9-15.9); WHITE BLOOD COUNT 4.4 K/mm3 (4.0-10.0)
[2019-01-19 11:10] LABS: ALBUMIN 2.1 g/dl (3.4-5.0); BILIRUBIN,TOTAL 0.2 mg/dL (0.2-1); BLOOD UREA NITROGEN 27.6 mg/dL (7-18); CALCIUM 8.3 mg/dL (8.5-10.1); CREATININE 2.1 mg/dL (0.55-1.3)
[2019-01-19] MEDS: PRENATAL VITAMINS W/ FOLIC ACID TABLET (FP) PO SCH (11:19)
[2019-01-19] MEDS: ESCITALOPRAM OXALATE 20 MG TABLET (FP) PO SCH (11:20)
--- NOTE | 2019-01-19 15:51 | EKG ---
Test Reason : Blood Pressure : / mmHG Vent. Rate : 065 BPM Atrial Rate : 065 BPM P-R Int : 132 ms QRS Dur : 082 ms QT Int : 422 ms P-R-T Axes : 054 054 027 degrees QTc Int : 438 ms NORMAL SINUS RHYTHM WITH SINUS ARRHYTHMIA VOLTAGE CRITERIA FOR LEFT VENTRICULAR HYPERTROPHY ABNORMAL ECG NO PREVIOUS ECGS AVAILABLE Confirmed by MD CURTIS MOYSES ([id number]) on 01/19/2019 3:51:10 PM Referred By: Confirmed By:MATT CURTIS MD
[2019-01-19] MEDS: THIAMINE HCL 100 MG TABLET (FP) PO SCH (21:29)
[2019-01-20] MEDS ORDERED: LISINOPRIL 20 MG TABLET (FP) PO ONE (00:27)
--- NOTE | 2019-01-20 00:32 | PN ---
[facility] Progress Note Note: client with asymptomatic elevated b/p, upon reviewing patient medication hx he is on amlodipine 10 mg and hctz 25 mg daily. orders adjusted. to start 10 am. will give lisinopril 40 mg po stat and cont to monitor clinically Vital Signs (72 hours) 01/18/19 01/18/19 01/18/19 17:40 20:45 23:25 Temperature 97.4 F L 97.3 F L Pulse Rate 78 70 76 Respiratory 18 18 Rate Blood Pressure 207/107 H 196/114 H 149/86 01/19/19 01/19/19 01/19/19 00:30 06:51 09:21 Temperature 97.2 F L 97.7 F Pulse Rate 74 77 Respiratory 18 18 20 Rate Blood Pressure 168/118 H 184/118 H 01/19/19 01/19/19 01/19/19 13:27 17:46 21:20 Temperature 97.6 F 96.7 F L 98.2 F Pulse Rate 88 89 94 H Respiratory 14 16 16 Rate Blood Pressure 149/93 179/98 H 184/100 H
[2019-01-20] MEDS: chlordiazePOXIDE 5 MG CAPSULE PO SCH ×3 (06:07→22:20)
[2019-01-20] MEDS ORDERED: cloNIDine HCL 0.1 MG TABLET PO ONE (07:14)
[2019-01-20] MEDS ORDERED: amLODIPine BESYLATE 5 MG TABLET (FP) PO SCH (10:00)
[2019-01-20] MEDS: PRENATAL VITAMINS W/ FOLIC ACID TABLET (FP) PO SCH (10:48)
[2019-01-20] MEDS: HYDROCHLOROTHIAZIDE 25 MG TABLET (FP) PO SCH (10:48)
[2019-01-20] MEDS: ESCITALOPRAM OXALATE 20 MG TABLET (FP) PO SCH (10:48)
[2019-01-20] MEDS: amLODIPine BESYLATE 10 MG TABLET (FP) PO SCH (10:49)
--- NOTE | 2019-01-20 16:35 | PN ---
[facility] CIWA - CIWA Score Nausea/Vomitin-No Nausea/No Vomiting Muscle Tremors: 2 Anxiety: 3 Agitation: 0-Normal Activity Paroxysmal Sweats: 3 Orientation: 2-Disoriented Date<2 days Tacttile Disturbances: 0-None Auditory Disturbances: 0-None Visual Disturbances: 2-Mild Sensitivity Headache: 0-None Present CIWA-Ar Total Score: 12 BHS Progress Note (SOAP) Subjective: Anxious, Tremors, Fatigue, Interrupted Sleep. Objective: PATIENT A & O X 2 (UNCERTAIN ABOUT CURRENT DAY / DATE). IN NO ACUTE DISTRESS. 01/20/19 16:32 Vital Signs Temperature 96.3 F L 01/20/19 13:37 Pulse Rate 80 01/20/19 13:37 Respiratory Rate 18 01/20/19 13:37 Blood Pressure 124/72 01/20/19 13:37 O2 Sat by Pulse Oximetry (%) Laboratory Tests 01/19/19 01/19/19 01/19/19 07:00 07:00 07:00 WBC 4.4 RBC 4.04 Hgb 10.9 L Hct 34.1 L D MCV 84.4 MCH 27.0 MCHC 32.0 RDW 16.3 H Plt Count 252 D MPV 9.0 Sodium 149 H Potassium 5.0 Chloride 116 H Carbon Dioxide 27 Anion Gap 6 L BUN 27.6 H Creatinine 2.1 H Est GFR (CKD-EPI)AfAm 40.72 Est GFR (CKD-EPI)NonAf 35.13 Random Glucose 122 H Calcium 8.3 L Total Bilirubin 0.2 AST 16 ALT 13 Alkaline Phosphatase 118 H Total Protein 6.0 L Albumin 2.1 L RPR Titer Nonreactive LABS NOTED. RESULTS OF DETOX ADMISSION QFT /TB TEST PENDING. 01/20/19 16:34 Assessment: 01/20/19 16:34 WITHDRAWAL SYMPTOMS. ANEMIA. AZOTEMIA. 01/20/19 16:35 Plan: CONTINUE DETOX. INCREASE DAILY PO WATER INTAKE. D/C IBUPROFEN AND MAGNESIUM-CONTAINING MEDS. FOR ABNORMAL ADMISSION RENAL LAB VALUES. BMP ORDERED FOR TOMORROW AM FOR ABNORMAL RENAL LAB VALUES NOTED ON DETOX ADMISSION LABORATORY ASSESSMENT.
[2019-01-20] MEDS: MELATONIN 5 MG TABLETS PO PRN (22:20)
[2019-01-20] MEDS: THIAMINE HCL 100 MG TABLET (FP) PO SCH (22:20)
[2019-01-21] MEDS ORDERED: chlordiazePOXIDE HCL 10 MG CAPSULE PO PRN
[2019-01-21] MEDS: chlordiazePOXIDE HCL 10 MG CAPSULE PO SCH ×3 (05:35→22:51)
[2019-01-21 10:39] LABS: BLOOD UREA NITROGEN 36.6 mg/dL (7-18); CREATININE 1.4 mg/dL (0.55-1.3); POTASSIUM 4.5 mmol/L (3.5-5.1)
[2019-01-21] MEDS: PRENATAL VITAMINS W/ FOLIC ACID TABLET (FP) PO SCH (10:45)
[2019-01-21] MEDS ORDERED: IBUPROFEN 600 MG TABLET (FP) PO PRN (10:45)
[2019-01-21] MEDS: amLODIPine BESYLATE 10 MG TABLET (FP) PO SCH (10:45)
[2019-01-21] MEDS: ESCITALOPRAM OXALATE 20 MG TABLET (FP) PO SCH (10:45)
[2019-01-21] MEDS: HYDROCHLOROTHIAZIDE 25 MG TABLET (FP) PO SCH (10:45)
--- NOTE | 2019-01-21 15:55 | PN ---
[facility] CIWA - CIWA Score Nausea/Vomitin-No Nausea/No Vomiting Muscle Tremors: 2 Anxiety: 3 Agitation: 0-Normal Activity Paroxysmal Sweats: No Perspiration Orientation: 2-Disoriented Date<2 days Tacttile Disturbances: 0-None Auditory Disturbances: 0-None Visual Disturbances: 2-Mild Sensitivity Headache: 0-None Present CIWA-Ar Total Score: 9 BHS Progress Note (SOAP) Subjective: Anxious, Tremors, Fatigue. Objective: PATIENT A & O X 2 (UNCERTAIN ABOUT CURRENT DAY / DATE). PATIENT OBSERVED AMBULATING ON UNIT UNASSISTED. IN NO ACUTE DISTRESS. 01/21/19 15:58 Vital Signs Temperature 97.3 F L 01/21/19 13:30 Pulse Rate 92 H 01/21/19 13:30 Respiratory Rate 17 01/21/19 13:30 Blood Pressure 150/69 01/21/19 13:30 O2 Sat by Pulse Oximetry (%) Laboratory Tests 01/19/19 01/19/19 01/19/19 07:00 07:00 07:00 WBC 4.4 RBC 4.04 Hgb 10.9 L Hct 34.1 L D MCV 84.4 MCH 27.0 MCHC 32.0 RDW 16.3 H Plt Count 252 D MPV 9.0 Sodium 149 H Potassium 5.0 Chloride 116 H Carbon Dioxide 27 Anion Gap 6 L BUN 27.6 H Creatinine 2.1 H Est GFR (CKD-EPI)AfAm 40.72 Est GFR (CKD-EPI)NonAf 35.13 Random Glucose 122 H Calcium 8.3 L Total Bilirubin 0.2 AST 16 ALT 13 Alkaline Phosphatase 118 H Total Protein 6.0 L Albumin 2.1 L RPR Titer Nonreactive 01/21/19 07:00 WBC RBC Hgb Hct MCV MCH MCHC RDW Plt Count MPV Sodium 141 Potassium 4.5 Chloride 107 Carbon Dioxide 33 H Anion Gap 2 L BUN 36.6 H Creatinine 1.4 H Est GFR (CKD-EPI)AfAm 66.48 Est GFR (CKD-EPI)NonAf 57.36 Random Glucose 93 Calcium 9.0 Total Bilirubin AST ALT Alkaline Phosphatase Total Protein Albumin RPR Titer LABS NOTED. RESULTS OF BMP NOTED. REDUCTION IN CREATININE LEVEL NOTED. INCREASE IN BUN AND GFR NOTED. 01/21/19 15:58 Assessment: 01/21/19 16:00 WITHDRAWAL SYMPTOMS. AZOTEMIA. Plan: CONTINUE DETOX. INCREASE DAILY PO WATER INTAKE. LISINOPRIL, 10 MG PO X 1 DOSE NOW ORDERED FOR ELEVATED BP DESPITE TREATMENT. PATIENT SCHEDULED FOR D/C FROM DETOX UNIT TOMORROW.
[2019-01-21] MEDS ORDERED: LISINOPRIL 10 MG TABLET (FP) PO ONE (16:45)
[2019-01-21] MEDS: THIAMINE HCL 100 MG TABLET (FP) PO SCH (22:51)
[2019-01-21] MEDS: MELATONIN 5 MG TABLETS PO PRN (22:51)
[2019-01-22] MEDS ORDERED: chlordiazePOXIDE HCL 10 MG CAPSULE PO ONE (05:00)
[2019-01-22 07:51] VITALS: BP 149/105; PULSE 91; TEMP 96.8
--- NOTE | 2019-01-22 09:25 | DS ---
[facility] Detox Discharge Summary Admission Date: 01/18/19 Discharge Date: 01/22/19 - History Present History: Alcohol Dependence, Cannabis Dependence, Cocaine Dependence - Physical Exam Results Vital Signs: Vital Signs Temperature 96.8 F L 01/22/19 07:49 Pulse Rate 91 H 01/22/19 07:49 Respiratory Rate 18 01/22/19 07:49 Blood Pressure 149/105 H 01/22/19 07:49 O2 Sat by Pulse Oximetry (%) Pertinent Admission Physical Exam Findings: pt was admitted in withdrawals Laboratory Tests 01/19/19 01/19/19 01/19/19 07:00 07:00 07:00 WBC 4.4 RBC 4.04 Hgb 10.9 L Hct 34.1 L D MCV 84.4 MCH 27.0 MCHC 32.0 RDW 16.3 H Plt Count 252 D MPV 9.0 Sodium 149 H Potassium 5.0 Chloride 116 H Carbon Dioxide 27 Anion Gap 6 L BUN 27.6 H Creatinine 2.1 H Est GFR (CKD-EPI)AfAm 40.72 Est GFR (CKD-EPI)NonAf 35.13 Random Glucose 122 H Calcium 8.3 L Total Bilirubin 0.2 AST 16 ALT 13 Alkaline Phosphatase 118 H Total Protein 6.0 L Albumin 2.1 L RPR Titer TB (QFT) Incubation TB Test (QFT) Nil 0.03 TB Test (QFT) Mitogen 0.90 TB Test (QFT) Antigen 0.03 TB Test (QFT) Negative TB Positive Criteria 01/19/19 01/21/19 07:00 07:00 WBC RBC Hgb Hct MCV MCH MCHC RDW Plt Count MPV Sodium 141 Potassium 4.5 Chloride 107 Carbon Dioxide 33 H Anion Gap 2 L BUN 36.6 H Creatinine 1.4 H Est GFR (CKD-EPI)AfAm 66.48 Est GFR (CKD-EPI)NonAf 57.36 Random Glucose 93 Calcium 9.0 Total Bilirubin AST ALT Alkaline Phosphatase Total Protein Albumin RPR Titer Nonreactive TB (QFT) Incubation TB Test (QFT) Nil TB Test (QFT) Mitogen TB Test (QFT) Antigen TB Test (QFT) TB Positive Criteria today pt is aaox3 ambulating no acute distress no s/s of withdrawals - Treatment Hospital Course: Detox Protocol Followed, Detoxed Safely, Responded well, Discharged Condition Good, Rehab Referral Accepted Patient has Accepted a Rehab Referral to[facility] - Medication Discharge Medications: Ambulatory Orders Amlodipine Besylate [Norvasc -] 5 mg PO DAILY #60 tablet 06/27/16 Dabigatran Etexilate Mesylate [Pradaxa -] 150 mg PO BID #60 cap 06/27/16 Escitalopram Oxalate [Lexapro -] 20 mg PO DAILY #30 tablet 06/28/16 Oxycodone HCl/Acetaminophen [Percocet 10-325 mg Tablet] 1 each PO TID 01/18/19 - Diagnosis (1) Alcohol dependence with uncomplicated withdrawal Current Visit: Yes Status: Chronic (2) Anemia Current Visit: Yes Status: Chronic Qualifiers: Anemia type: iron deficiency (3) Cardiac murmur Current Visit: Yes Status: Acute (4) Cocaine dependence Current Visit: Yes Status: Chronic Qualifiers: Substance use status: uncomplicated Qualified Code(s): F14.20 - Cocaine dependence, uncomplicated (5) Nystagmus Current Visit: Yes Status: Acute (6) Substance induced mood disorder Current Visit: Yes Status: Acute (7) Substance-induced sleep disorder Current Visit: Yes Status: Acute (8) Acquired immune deficiency syndrome (AIDS) Current Visit: Yes Status: Chronic (9) Hip pain Current Visit: Yes Status: Chronic Qualifiers: Laterality: left Qualified Code(s): M25.552 - Pain in left hip (10) Hypertension Current Visit: Yes Status: Chronic Qualifiers: Hypertension type: essential hypertension Qualified Code(s): I10 - Essential (primary) hypertension (11) MDD (major depressive disorder), recurrent episode, with atypical features Current Visit: Yes Status: Chronic (12) Nicotine dependence, cigarettes, uncomplicated Current Visit: Yes Status: Chronic (13) Varicose veins of both lower extremities Current Visit: Yes Status: Chronic Qualifiers: Varicose vein complication: unspecified Qualified Code(s): I83.93 - Asymptomatic varicose veins of bilateral lower extremities (14) Weight decreased Current Visit: Yes Status: Chronic (15) Bipolar II disorder Current Visit: Yes Status: Ruled-out (16) Bipolar affective disorder Current Visit: Yes Status: Acute (17) Cannabis dependence Current Visit: Yes Status: Acute (18) Hyperglycemia Current Visit: Yes Status: Acute (19) Nicotine dependence Current Visit: Yes Status: Chronic Qualifiers: Nicotine product type: cigarettes Substance use status: uncomplicated Qualified Code(s): F17.210 - Nicotine dependence, cigarettes, uncomplicated (20) Seizure Current Visit: No Status: Acute (21) Syncope Current Visit: No Status: Acute (22) Avascular necrosis of bones of both hips Current Visit: Yes Status: Chronic (23) Left leg DVT Current Visit: No Status: Chronic - AMA Did Patient Leave Against Medical Advice: No
[2019-01-22] MEDS: amLODIPine BESYLATE 10 MG TABLET (FP) PO SCH (10:07)
[2019-01-22] MEDS: ESCITALOPRAM OXALATE 20 MG TABLET (FP) PO SCH (10:07)
[2019-01-22] MEDS: HYDROCHLOROTHIAZIDE 25 MG TABLET (FP) PO SCH (10:07)
[2019-01-22] MEDS: PRENATAL VITAMINS W/ FOLIC ACID TABLET (FP) PO SCH (10:07)
== END 2019-01-22 11:11 | disposition home or self-care (01) | DRG 774 ==
LOC: YASAS 14:59 → Y6N 20:02
PROVIDERS: ADMIT Surgery; ATTEND Surgery
PROC: HZ2ZZZZ Detoxification Services for Substance Abuse Treatment (ICD-10-PCS; principal; 2019-01-18)
DX: F10.230 Alcohol dependence with withdrawal, uncomplicated (principal); F14.20 Cocaine dependence, uncomplicated; F12.20 Cannabis dependence, uncomplicated; F17.210 Nicotine dependence, cigarettes, uncomplicated; F19.24 Other psychoactive substance dependence with psychoactive substance-induced mood disorder; F19.282 Other psychoactive substance dependence with psychoactive substance-induced sleep disorder; F33.0 Major depressive disorder, recurrent, mild; F31.81 Bipolar II disorder; I10 Essential (primary) hypertension; H55.00 Unspecified nystagmus; R01.1 Cardiac murmur, unspecified; D50.9 Iron deficiency anemia, unspecified; B20 Human immunodeficiency virus [HIV] disease; M25.552 Pain in left hip; I83.93 Asymptomatic varicose veins of bilateral lower extremities; R63.4 Abnormal weight loss; R73.9 Hyperglycemia, unspecified; M87.851 Other osteonecrosis, right femur; R79.89 Other specified abnormal findings of blood chemistry; Z86.69 Personal history of other diseases of the nervous system and sense organs; Z86.718 Personal history of other venous thrombosis and embolism
CPT/HCPCS: 36415; 80048; 80053; 85027; 86480; 86593; 93005; 93010; J0735